=== PATIENT | male | born 1970 | race Caucasian/White ===

== ENCOUNTER 2020-05-25 16:06 | Emergency (ER) | payer OTHER, SELFPAY ==
[2020-05-25 16:07] VITALS: BP 120/86; PULSE 81; RESP 16; TEMP 36.9; O2SAT 98; BMI 33.0
[2020-05-25 16:38] VITALS: BP 120/86; PULSE 81; RESP 16; TEMP 36.9; O2SAT 98; BMI 32.9
--- NOTE | 2020-05-25 16:49 | HMH.EDUTC ---
[facility] [place] Impression: Abscess, Bronchitis Disposition: Home, Self-Care Condition on Discharge: Good Instructions: Boil, Acute Bronchitis Additional Instructions: follow up with surgery to have abcess evaluated call tomorrow for appointment antibiotics as ordered keep area clean and dry if symptoms worsen or does not improve return follow up with pcp this week call for culture results in 2 days/. Prescriptions: Sulfamethoxazole/Trimethoprim [Bactrim DS tablet] 1 each PO BID 10 Days #20 tab Transmission Status: Pending to [id number] cephALEXin [Keflex 500mg Cap] 500 mg PO BID 10 Days #20 cap Transmission Status: Pending to [id number] Referrals: Consuelo Blevins [Primary Care Provider] - Time of Disposition: 17:33 Medical Decision Making - Mike Inquiry Pt receiving controlled substance: No Vital Signs: 05/25/20 16:07 05/25/20 16:38 Temperature 98.5 F 98.5 F Temperature Source Oral Oral Pulse Rate [Radial] 81 81 Respiratory Rate 16 16 Blood Pressure [Right Arm] 120/86 120/86 Blood Pressure Mean [Right Arm] 97 97 Blood Pressure Source [Right Arm] Automatic Cuff Blood Pressure Position [Right Arm] Sitting Sitting 02 Sat by Pulse Oximetry 98 98 Oxygen Delivery Method Room Air Room Air Orders (Tests/Meds): ORDERS Category Date Time Status Wound Culture and Gram Stain Stat Micro 05/25/20 17:22 [place] [facility] [place] - General Chief complaint: [facility] Stated complaint: boil on L side of back Time Seen by Provider: 05/25/20 16:49 Mode of Arrival: Ambulatory Source of Information: Patient Limitations: No Limitations Description of Symptoms (Recalled from Triage Doc. by RN): PATIENT C/O BOIL ON LEFT SIDE OF BACK X 2 DAYS HEENT Symptoms (Recalled from RN notes): No Resp Symptoms (Recalled from RN notes): No Skin Symptoms (Recalled from RN notes): No MS Symptoms (Recalled from RN notes): Yes Functional Status (Recalled from RN notes): WNL - History of Present Illness Provider Complaint: 49 yr old male presents for boil on back for 2 days and green nasal congestion with cough. - Related Data Previous Rx's Medication Instructions Recorded Albuterol Sulfate [Albuterol HFA 1 - 2 puffs IH Q4-6H PRN #1 inh 02/09/20 Inhaler] Azithromycin [Z-Sumanth 250mg Tab*] 250 mg PO UD DOSE PK #6 tab 09/09/19 Benzonatate [Tessalon Perle 100mg 100 mg PO TID PRN #30 cap 09/09/19 Cap*] methylPREDNISolone [Medrol 4mg 4 mg PO DIRECTED #21 tab 09/09/19 tab] Sulfamethoxazole/Trimethoprim 1 each PO BID 10 Days #20 tab 05/25/20 [Bactrim DS tablet] cephALEXin [Keflex 500mg Cap] 500 mg PO BID 10 Days #20 cap 05/25/20 Allergies Allergy/AdvReac Type Severity Reaction Status Date / Time No Known Allergies Allergy Verified 05/01/19 03:15 - Worker's Comp Is this a Worker's Comp case?: No [facility] History - Hepatitis A Screen Drug use history?: No High risk sexual behaviors?: No History of sexually transmitted infection?: No Currently employed?: No Childcare worker?: No Do you have indoor plumbing?: Yes Do you have electricity?: Yes Attestation statement:: This patient has been screened for Hepatitis A risk factors. I have reviewed the patient's past medical history: Yes Medical History: Denies:: Cancer, Diabetes Mellitus Type 1, Diabetes Mellitus Type 2, MRSA Amputation: No - Social History Smoking Status: Current every day smoker Tobacco Type: cigarettes # Packs/Day (cigarettes): 1 Alcohol Intake: never Alcohol Intake Frequency:: a few times a month Occupational Status: other ROS Obtained: Yes Systems reviewed as appropriate & no additional complaints - Constitutional Constitutional: Reports system reviewed and no additional complaints, except as docu, Denies fever(s) - Eyes Eyes: Reports system reviewed and no additional complaints, except as docu, Denies eye pain - ENT Ears, Nose, Mouth, and Throat: Reports system reviewed an
[2020-05-25 17:35] VITALS: BP 120/86; PULSE 81; RESP 16; TEMP 36.9; O2SAT 98
== END 2020-05-25 17:37 | disposition home or self-care (01) ==
LOC: ER 16:14 → UTC 16:15
PROVIDERS: Emergency Provider Nurse Practitioner Family; PCP Family Medicine
DX: L02.212 Cutaneous abscess of back [any part, except buttock and flank] (principal); J20.9 Acute bronchitis, unspecified; F17.210 Nicotine dependence, cigarettes, uncomplicated
CPT/HCPCS: 10060; 87070; 87077; 87205; 99201

== ENCOUNTER 2021-04-17 16:13 | Observation (INO) | payer OTHER, SELFPAY ==
[2021-04-17] VITALS (11 sets, daily range): BP systolic 95–127; BP diastolic 50–84; PULSE 63–88; RESP 17–19; TEMP 36.8–36.9; O2SAT 92–96; BMI 27.8; BMI 32.6
--- NOTE | 2021-04-17 16:13 | ECG_ITS ---
APPROVED REPORT Exam: Resting ECG HR:88 bpm ECG Measurements Heart Rate 88 AXES LA 174 P 51 QRSd 104 QRS -88 QT 418 T 103 QTc 505 Conclusion Normal sinus rhythm Pulmonary disease pattern Incomplete right bundle branch block Left anterior fascicular block Left ventricular hypertrophy with repolarization abnormality Prolonged QT Abnormal ECG Electronically signed by : Nolberto Patel MD 04/18/2021 21:11:43
--- NOTE | 2021-04-17 16:24 | XR_ITS ---
PROCEDURE INFORMATION: Exam: XR Chest Exam date and time: 04/17/2021 4:24 PM Age: 50 years old Clinical indication: Pain; On breathing; Additional info: Cough TECHNIQUE: Imaging protocol: XR of the chest. Views: 1 view. COMPARISON: CR XR CHEST 2V 05/01/2019 2:48 AM FINDINGS: Airway: Patent Lungs: Low lung volumes causes crowding of the bronchovascular structures. Questionable ground-glass opacifications in the bilateral lung bases. Remainder of the lungs are clear. Pleural spaces: Unremarkable. No pleural effusion. No pneumothorax. Heart/Mediastinum: Cardiomediastinal silhouette is magnified due to technique. Bones/joints: No acute skeletal abnormality or aggressive osseous lesion. IMPRESSION: Question of developing bilateral basal airspace disease versus artifact from crowding of structures. Developing pneumonic process should be entertained in the appropriate clinical setting.
--- NOTE | 2021-04-17 16:34 | HMH.EDCP ---
ED Disposition Clinical Impression: Nonspecific chest pain, Acute kidney injury Disposition: Still a Patient Condition on Discharge: Fair - Critical Care Critical Care Time: No Attestation: On , the high probability of a clinically significant, sudden or life threatening deterioration of the following system(s) required my full and direct attention, intervention and personal management. The time I documented below is in addition to time spent performing reported procedures but includes the following listed in this critical care notation. Medical Decision Making - Medical Records Medical records reviewed: Yes: I reviewed the patient's medical records. - Mike Inquiry Pt receiving controlled substance: Yes Mike was queried for this patient: Yes Reference #:: [id number] Risks and benefits of using a controlled substance: were discussed with pt by me Vital Signs: 04/17/21 16:16 04/17/21 16:30 04/17/21 17:01 Temperature 98.4 F Temperature Source Oral Pulse Rate 82 87 Pulse Rate [Left Radial] 88 Respiratory Rate 18 17 18 Blood Pressure 116/70 103/52 L Blood Pressure [Right Arm] 127/84 Blood Pressure Mean 85 69 Blood Pressure Mean [Right Arm] 98 Blood Pressure Source [Right Arm] Automatic Cuff Blood Pressure Position [Right Arm] Sitting 02 Sat by Pulse Oximetry 96 96 95 Oxygen Delivery Method Room Air 04/17/21 17:30 04/17/21 18:00 04/17/21 18:30 Temperature Temperature Source Pulse Rate 84 82 75 Pulse Rate [Left Radial] Respiratory Rate 17 18 18 Blood Pressure 114/56 L 95/51 L 101/50 L Blood Pressure [Right Arm] Blood Pressure Mean 69 65 63 Blood Pressure Mean [Right Arm] Blood Pressure Source [Right Arm] Blood Pressure Position [Right Arm] 02 Sat by Pulse Oximetry 94 L 92 L 92 L Oxygen Delivery Method - Lab Data Lab Results 04/17/21 16:20: WBC 8.8, RBC 4.11 L, Hgb 14.0 L, Hct 39.9 L, MCV 97.1 H, MCH 34.0 H, MCHC 35.0, RDW 13.9, Plt Count 335, MPV 7.6, Neut % (Auto) 49.8, Lymph % (Auto) 40.4, [place] % (Auto) 5.4, Eos % (Auto) 3.2, Baso % (Auto) 1.3, Neut # (Auto) 4.4, Lymph # (Auto) 3.5, [place] # (Auto) 0.5, Eos # (Auto) 0.3, Baso # (Auto) 0.1 04/17/21 16:20: Sodium 138, Potassium 4.2, Chloride 103, Carbon Dioxide 23, Anion Gap 16.2 H, BUN 21 H, Creatinine 1.40 H, Estimated Creat Clear 79, Estimated GFR 53 L, Est GFR ( Amer) 64, Glucose 110 H, Calcium 9.4, Total Bilirubin 0.2, AST 40, ALT 24, Alkaline Phosphatase 85, Troponin I 0.03, Total Protein 7.7, Albumin 4.4, Globulin 3.3 H, Albumin/Globulin Ratio 1.3, Lipase 152 04/17/21 16:20: PT 10.4, INR 0.87 L, APTT 28.0 04/17/21 16:20: NT-Pro-B Natriuret Pep 1220 H Result diagrams: 04/17/21 16:20 04/17/21 16:20 Orders (Tests/Meds): ED MEDICATIONS Generic Name Dose Route Start Last Admin Trade Name Freq PRN Reason Stop Dose Admin Sodium Chloride 1,000 mls @ 999 mls/hr 04/17/21 18:45 04/17/21 19:06 Sod Chlor 0.9% 1000ml Bag IV 04/17/21 19:45 999 mls/hr .Q1H1M MEHDI Administration Discontinued Medications Generic Name Dose Route Start Last Admin Trade Name Freq PRN Reason Stop Dose Admin Aspirin 325 mg 04/17/21 16:24 04/17/21 17:00 Aspirin 325mg Tablet PO 04/17/21 16:25 325 mg ONCE ONE Administration Morphine Sulfate 4 mg 04/17/21 16:24 04/17/21 17:00 Morphine 4mg/Ml Syringe IV 04/17/21 16:25 4 mg ONCE ONE Administration Ondansetron HCl 4 mg 04/17/21 16:24 04/17/21 17:00 Ondansetron 4mg/2ml Vial IV 04/17/21 16:25 4 mg ONCE ONE Administration ORDERS Category Date Time Status Troponin I Q3H Lab 04/17/21 19:30 Ordered Troponin I Q3H Lab 04/17/21 22:30 Ordered - ECG Data Tracing #1 EKG showed a normal ventricular rate 80 bpm, MD interval of 174 ms, prolonged QTC of 505 ms. Patient has some nonspecific ST changes, left ventricular hypertrophy with repolarization. ECG initial impression date: 04/17/21 ECG initial impression time:
[2021-04-17 16:39] LABS: Basophils # 0.1 K/mm3 (0-0.2); Basophils % 1.3 % (0.1-2.0); Eosinophils # 0.3 K/mm3 (0.0-0.4); Eosinophils % 3.2 % (0.1-12.0); Hematocrit 39.9 % (42.0-52.0); Lymphocytes # 3.5 K/mm3 (0.7-4.5); Lymphocytes % 40.4 % (10-50); Mean Corpuscular Volume 97.1 fl (80-94); Mean Platelet Volume 7.6 fl (7.4-10.4); Monocytes # 0.5 K/mm3 (0.1-1.0); Monocytes % 5.4 % (1.7-9.3); Neutrophils # 4.4 K/mm3 (1.8-7.8); Neutrophils % 49.8 % (37.0-80.0); Platelet Count 335 K/mm3 (142-424); Red Blood Count 4.11 M/mm3 (4.60-6.20); Red Cell Distribution Width 13.9 % (11.5-17.5); White Blood Count 8.8 K/mm3 (4.8-10.8)
[2021-04-17 16:40] LABS: Chloride 103 mmol/L (98-107); Potassium 4.2 mmoL/L (3.5-5.1); Sodium 138 mmol/L (136-145)
[2021-04-17 16:42] LABS: Blood Urea Nitrogen 21 mg/dl (9-20); Creatinine Clearance Estimated 79 mL/min (50-200); Estimated Glomerular Filt Rate 53 ml/min (>60); GFR (African American) 64 ML/MIN (>60)
[2021-04-17 16:43] LABS: Alanine Aminotransferase 24 U/L (12-78); Albumin Level 4.4 g/dl (3.5-5.0); Albumin/Globulin Ratio 1.3 (1.1-1.8); Alkaline Phosphatase 85 U/L (38-126); Anion Gap 16.2 mEq/L (5-15); Aspartate Amino Transferase 40 U/L (17-59); Bilirubin,Total 0.2 mg/dl (0.2-1.3); Calcium 9.4 mg/dl (8.4-10.2); Carbon Dioxide 23 mmol/L (22.0-30.0); Globulin 3.3 g/dL (1.3-3.2); Glucose 110 mg/dl (74-100); Lipase 152 U/L (23-300); Total Protein,Serum 7.7 g/dl (6.3-8.2)
[2021-04-17 16:45] LABS: Prothrombin Time 10.4 seconds (10.1-12.5)
[2021-04-17 16:53] LABS: NT Pro Brain Natriuretic Pep. 1220 pg/mL (0-125)
[2021-04-17 16:56] LABS: Troponin I 0.03 ng/ml (0.00-0.034)
[2021-04-17 17:07] LABS: INR 0.87 (0.9-1.1)
[2021-04-17 20:40] LABS: Troponin I 0.04 ng/ml (0.00-0.034)
--- NOTE | 2021-04-17 21:08 | PC.NURSE ---
Dr. Pastor s/w Dr. Menon. He would like to keep pt and possible do heart cath in am.
--- NOTE | 2021-04-17 21:11 | PC.NURSE ---
Dr. Pastor s/w Dr. Sweet for admission. Notifed music supervisor and Charge nurse for bed assignment. room 213
[2021-04-17 21:24] LABS: Coronavirus 19, PCR Not Detected (NotDetected); Influenza A, PCR Not Detected (NotDetected); Influenza B, PCR Not Detected (NotDetected)
--- NOTE | 2021-04-17 21:26 | PC.NURSE ---
Dr. Sweet made aware that there is no heart monitor available for this patient on the floor
--- NOTE | 2021-04-17 22:51 | PC.NURSE ---
patient up to floor via wheelchair .
[2021-04-17 23:09] LABS: Troponin I 0.05 ng/ml (0.00-0.034)
[2021-04-18] VITALS (7 sets, daily range): BP systolic 111–142; BP diastolic 58–90; PULSE 58–68; RESP 14–20; TEMP 36.5–36.6; O2SAT 96–100
--- NOTE | 2021-04-18 | IR_ITS ---
APPROVED REPORT Patient Location: Inpatient Human Resources Training Manager: MIGEL Crump RT (R) PROCEDURES Left heart catheterization Left ventriculogram Selective coronary angiogram Catheter placed in the abdominal aorta Nonselective bilateral renal angiogram INDICATION Acute coronary syndrome elevated troponin with highly abnormal EKG, Hypertension with elevated creatinine 1.4 suspect renovascular hypertension/renal artery stenosis Informed consent was obtained prior to the procedure. COMPLICATIONS NONE Estimated Blood Loss: LESS THAN 10 ML TECHNIQUE One percent lidocaine used to anesthetize the right anterior aspect of the wrist. The right radial artery was accessed via the Seldinger technique. A 6 Tajik sheath was placed in the right radial artery. 2.5 mg of verapamil, 800 mcg of nitroglycerin, 1mg Lidocaine and 5000 U Heparin were given through the arterial sheath. The Poppa catheter was also used to perform left heart catheterization, left ventriculogram and selective coronary angiogram. The catheter was then pulled back and placed at the renal artery level. Due to the short nature of the catheter selective intubation cannot be performed of the renal arteries. Nonselective renal angiography did demonstrate wide patency of the renal arteries. At the end of the procedure the apparatus was removed the sheath was removed and hemostasis achieved using TR banding patient was transferred to the postop already in stable condition ANGIOGRAPHIC RESULTS The left main artery Normal The left anterior descending artery Normal The circumflex artery Normal The right coronary artery Dominant normal The RAI ventriculogram reveals Slightly hyperdynamic 75% The left ventricular end-diastolic pressure 30 to 35 mmHg Right renal artery singular normal Left renal artery singular normal IMPRESSION Normal coronary arteries Hyperdynamic ventricle consistent with hypertensive heart disease Elevated LVEDP consistent with hypertensive heart disease Normal renal arteries PLAN 1. Treatment of hypertensive heart disease 2. Patient needs an echocardiogram to evaluate for other structural heart disease based on the highly abnormal EKG 3. ROSALINDA inhibitor's and beta-blockers for hypertensive heart disease 4. Risk factor modification 5. Avoidance of tobacco products Electronically signed by : Israel Menon MD 04/18/2021 11:50:52
--- NOTE | 2021-04-18 04:45 | PC.NURSE ---
pt is AxOx4, on room air, has had no complaints of chest pain since arriving to floor
--- NOTE | 2021-04-18 10:29 | PC.NURSE ---
1012 dr. sanchez notified staff of plans to cath pt at 1130 today 1014 dairy laboratory technician team paged at this time 1015 return call from nghia flores rn 1016 return call from jonathan rondon and reilly melgarrn
--- NOTE | 2021-04-18 10:49 | HMH.HP ---
*Admission Date: 04/17/21 *Chief complaint: chest pain *History of present illness: this patient presented with chest pain to the ed - his is a 50-year-old male presented to the emergency department with some chest discomfort. Patient states that he has had the symptoms for the last month or so. He states that they come and go. Intermittent in nature. Patient states that they are not exacerbated by any certain activity. It is a dull pain. Located more in the right side of his chest. Non-radiating. Not associate with any palpitations or shortness of breath. No cough hemoptysis. Denies any headache or change in vision. No focal weakness. No abdominal pain or vomiting. No fevers or chills. pt reports increasing sc over the last month - pt has sig risk factors - tob and htn and positive fh - pt was admitted for serial enz and monitor and discuss with [facility] History I have reviewed the patient's past medical history: Yes Medical History: Reports:: Hyperlipidemia, Hypertension Denies:: Cancer, Diabetes Mellitus Type 1, Diabetes Mellitus Type 2, MRSA *Have you ever received a pneumonia vaccine?: No *Have you received a flu vaccine this season?: No Amputation: No Fractures: No - *Social History Smoking Status: Current every day smoker Tobacco Type: cigarettes # Packs/Day (cigarettes): 1 Alcohol Intake: current Alcohol Intake Frequency:: holidays/special occasions only *Occupational Status:: unemployed *Travel in the last 8 weeks: None Family Hx:: Cancer, Diabetes Review of Systems - Review of Systems Review of systems:: pertinent systems reviewed and negative unless documented below - Constitutional Denies fever(s) - Eyes Denies change in vision, Denies floaters - ENT Denies dizziness, Denies sore throat - *Cardiovascular Reports chest pain at rest, Reports chest pain with activity - *Respiratory Denies cough - *Gastrointestinal Denies abdominal pain - *Genitourinary Denies blood in urine - *Musculoskeletal Denies joint pain, Denies joint swelling - Integumentary/Breasts Denies rash - *Neurologic Denies headache(s), Denies numbness - Psychiatric Denies anxiety Meds Home Medications Medication Instructions Recorded Confirmed Type Ergocalciferol (Vitamin D2) 1.25 mg PO WEEKLY 04/17/21 04/17/21 History [Vitamin D2] Gabapentin 300 mg PO QID 04/17/21 04/17/21 History Levothyroxine Sodium [Euthyrox] 175 mcg PO DAILY 04/17/21 04/17/21 History Metoprolol Succinate [Metoprolol 25 mg PO DAILY 04/17/21 04/17/21 History Succinate 25mg Tablet*] Pravastatin Sodium [Pravachol 40mg 40 mg PO HS 04/17/21 04/17/21 History Tablet] Allergies Allergy/AdvReac Type Severity Reaction Status Date / Time No Known Allergies Allergy Verified 04/17/21 23:20 Exam Vital signs and Labs for Last 24 Hours: Temp Pulse Resp BP Pulse Ox 97.7 F 58 L 16 117/68 97 04/18/21 08:00 04/18/21 08:00 04/18/21 08:00 04/18/21 08:00 04/18/21 08:00 Laboratory Results - last 24 hr 04/17/21 16:20: WBC 8.8, RBC 4.11 L, Hgb 14.0 L, Hct 39.9 L, MCV 97.1 H, MCH 34.0 H, MCHC 35.0, RDW 13.9, Plt Count 335, MPV 7.6, Neut % (Auto) 49.8, Lymph % (Auto) 40.4, [place] % (Auto) 5.4, Eos % (Auto) 3.2, Baso % (Auto) 1.3, Neut # (Auto) 4.4, Lymph # (Auto) 3.5, [place] # (Auto) 0.5, Eos # (Auto) 0.3, Baso # (Auto) 0.1 04/17/21 16:20: Sodium 138, Potassium 4.2, Chloride 103, Carbon Dioxide 23, Anion Gap 16.2 H, BUN 21 H, Creatinine 1.40 H, Estimated Creat Clear 79, Estimated GFR 53 L, Est GFR ( Amer) 64, Glucose 110 H, Calcium 9.4, Total Bilirubin 0.2, AST 40, ALT 24, Alkaline Phosphatase 85, Troponin I 0.03, Total Protein 7.7, Albumin 4.4, Globulin 3.3 H, Albumin/Globulin Ratio 1.3, Lipase 152 04/17/21 16:20: PT 10.4, INR 0.87 L, APTT 28.0 04/17/21 16:20: NT-Pro-B Natriuret Pep 1220 H 04/17/21 19:56: Troponin I 0.04 H 04/17/21 21:19: SARS-CoV-2 (PCR) Not detected, Influenza A Untype (PCR) Not detected, Influenz
[2021-04-18 11:10] LABS: Cholesterol 175 mg/dl (140-200); HDL Cholesterol 29 mg/dl (40-60); Triglycerides 152 mg/dl (30-150); VLDL Cholesterol 30 mg/dL (0-40)
[2021-04-18 11:21] LABS: Direct LDL Cholesterol 110.95 mg/dL (100-129)
--- NOTE | 2021-04-18 13:44 | P.CONPHA_ITS ---
[facility] Pharmacy VTE Monitoring - Patient Demographics Admission date: 04/17/21 Report Date: 04/18/21 Time: 13:44 Allergies/Adverse Reactions: Patient Allergies No Known Allergies Allergy (Verified 04/17/21 23:20) Height: 1.8 m Weight: 105.857 kg Patient Problems: Current Active Problems Nonspecific chest pain (Acute) Acute kidney injury (Acute) Unstable angina (Acute) Tobacco use (Acute) Elevated troponin (Acute) Elevated brain natriuretic peptide (BNP) level (Acute) Renal insufficiency (Acute) HTN (hypertension) (Acute) Obesity (BMI 30-39.9) (Acute) Hypothyroidism (Acute) - VTE Risk Labs: VTE Related Lab Results Hgb 14.0 g/dL (14.1-18.0) L 04/17/21 16:20 Hct 39.9 % (42.0-52.0) L 04/17/21 16:20 Plt Count 335 K/mm3 (142-424) 04/17/21 16:20 PT 10.4 seconds (10.1-12.5) 04/17/21 16:20 INR 0.87 (0.9-1.1) L 04/17/21 16:20 APTT 28.0 seconds (22.8-30.6) 04/17/21 16:20 BUN 21 mg/dl (9-20) H 04/17/21 16:20 Creatinine 1.40 mg/dl (0.66-1.25) H 04/17/21 16:20 Estimated Creat Clear 79 mL/min (50-200) 04/17/21 16:20 Was VTE Risk Assessment Performed: Yes VTE Score: 1 VTE Risk Level: Very Low Risk - Prophylaxis VTE Prophylaxis Ordered?: Yes Types of VTE Prophylaxis: TEDS Knee High Location of Applied Device: Bilateral Lower Extremeties
--- NOTE | 2021-04-18 13:46 | HMH.PHAINT ---
MEDICATION RECONCILIATION COMPLETED ON PATIENT USING EXTERNAL FILL HISTORY FROM PHARMACY. -CRYS ONOFRE, SHARLAD
--- NOTE | 2021-04-18 16:09 | HMH.DCSUM ---
General - General Admission date:: 04/17/21 Discharge date: 04/18/21 HPI HPI: this patient presented with chest pain to the ed - his is a 50-year-old male presented to the emergency department with some chest discomfort. Patient states that he has had the symptoms for the last month or so. He states that they come and go. Intermittent in nature. Patient states that they are not exacerbated by any certain activity. It is a dull pain. Located more in the right side of his chest. Non-radiating. Not associate with any palpitations or shortness of breath. No cough hemoptysis. Denies any headache or change in vision. No focal weakness. No abdominal pain or vomiting. No fevers or chills. pt reports increasing sc over the last month - pt has sig risk factors - tob and htn and positive fh - pt was admitted for serial enz and monitor and discuss with card- Hospital Course Hospital Course: Laboratory Tests 04/17/21 04/17/21 04/17/21 16:20 16:20 16:20 WBC 8.8 RBC 4.11 L Hgb 14.0 L Hct 39.9 L MCV 97.1 H MCH 34.0 H MCHC 35.0 RDW 13.9 Plt Count 335 MPV 7.6 Neut % (Auto) 49.8 Lymph % (Auto) 40.4 [place] % (Auto) 5.4 Eos % (Auto) 3.2 Baso % (Auto) 1.3 Neut # (Auto) 4.4 Lymph # (Auto) 3.5 [place] # (Auto) 0.5 Eos # (Auto) 0.3 Baso # (Auto) 0.1 PT 10.4 INR 0.87 L APTT 28.0 Sodium 138 Potassium 4.2 Chloride 103 Carbon Dioxide 23 Anion Gap 16.2 H BUN 21 H Creatinine 1.40 H Estimated Creat Clear 79 Estimated GFR 53 L Est GFR ( Amer) 64 Glucose 110 H Calcium 9.4 Total Bilirubin 0.2 AST 40 ALT 24 Alkaline Phosphatase 85 Troponin I 0.03 NT-Pro-B Natriuret Pep Total Protein 7.7 Albumin 4.4 Globulin 3.3 H Albumin/Globulin Ratio 1.3 Triglycerides Cholesterol LDL Cholesterol Direct VLDL Cholesterol HDL Cholesterol Cholesterol/HDL Ratio Lipase 152 SARS-CoV-2 (PCR) Influenza A Untype (PCR) Influenza Type B (PCR) 04/17/21 04/17/21 04/17/21 16:20 19:56 21:19 WBC RBC Hgb Hct MCV MCH MCHC RDW Plt Count MPV Neut % (Auto) Lymph % (Auto) [place] % (Auto) Eos % (Auto) Baso % (Auto) Neut # (Auto) Lymph # (Auto) [place] # (Auto) Eos # (Auto) Baso # (Auto) PT INR APTT Sodium Potassium Chloride Carbon Dioxide Anion Gap BUN Creatinine Estimated Creat Clear Estimated GFR Est GFR ( Amer) Glucose Calcium Total Bilirubin AST ALT Alkaline Phosphatase Troponin I 0.04 H NT-Pro-B Natriuret Pep 1220 H Total Protein Albumin Globulin Albumin/Globulin Ratio Triglycerides Cholesterol LDL Cholesterol Direct VLDL Cholesterol HDL Cholesterol Cholesterol/HDL Ratio Lipase SARS-CoV-2 (PCR) Not detected Influenza A Untype (PCR) Not detected Influenza Type B (PCR) Not detected 04/17/21 04/18/21 22:43 06:49 WBC RBC Hgb Hct MCV MCH MCHC RDW Plt Count MPV Neut % (Auto) Lymph % (Auto) [place] % (Auto) Eos % (Auto) Baso % (Auto) Neut # (Auto) Lymph # (Auto) [place] # (Auto) Eos # (Auto) Baso # (Auto) PT INR APTT Sodium Potassium Chloride Carbon Dioxide Anion Gap BUN Creatinine Estimated Creat Clear Estimated GFR Est GFR ( Amer) Glucose Calcium Total Bilirubin AST ALT Alkaline Phosphatase Troponin I 0.05 H NT-Pro-B Natriuret Pep Total Protein Albumin Globulin Albumin/Globulin Ratio Triglycerides 152 H Cholesterol 175 LDL Cholesterol Direct 110.95 VLDL Cholesterol 30 HDL Cholesterol 29 L Cholesterol/HDL Ratio 6.0 H Lipase SARS-CoV-2 (PCR) Influenza A Untype (PCR) Influenza Type B (PCR) Ordering Physician: Israel Menon MD
--- NOTE | 2021-04-20 09:48 | HMH.CNCARD ---
History of Present Illness Consult date: 04/18/21 Requesting physician: Guy Pastor Consult reason: chest pain Chief complaint: chest pain History of present illness: This is a 50-year-old gentleman who presented to the emergency department with complaints of chest pain. The patient states that his symptoms started approximately a month ago. His pain is intermittent. He states that this is a dull pressure sensation in the right side of his chest. It does not radiate. It is not associated with shortness of breath, nausea or diaphoresis. He states that this occurs with rest or activity and is not really exacerbated by any certain activity. He states that it lasts for several minutes before resolving. The patient is a current tobacco user and does have a family history of ischemic heart disease. [facility] History I have reviewed the patient's past medical history: Yes Medical History: Reports:: Hyperlipidemia, Hypertension Denies:: Cancer, Diabetes Mellitus Type 1, Diabetes Mellitus Type 2, MRSA *Have you ever received a pneumonia vaccine?: No *Have you received a flu vaccine this season?: No Amputation: No Fractures: No - *Social History Smoking Status: Current every day smoker Tobacco Type: cigarettes # Packs/Day (cigarettes): 1 Alcohol Intake: current Alcohol Intake Frequency:: holidays/special occasions only *Occupational Status:: unemployed *Travel in the last 8 weeks: None Family Hx:: Cancer, Coronary Artery Disease, Diabetes Meds Home Medications Medication Instructions Recorded Confirmed Type Ergocalciferol (Vitamin D2) 1.25 mg PO WEEKLY 04/17/21 04/17/21 History [Vitamin D2] Gabapentin 300 mg PO QID 04/17/21 04/17/21 History Levothyroxine Sodium [Euthyrox] 175 mcg PO DAILY 04/17/21 04/17/21 History Metoprolol Succinate [Metoprolol 25 mg PO DAILY 04/17/21 04/17/21 History Succinate 25mg Tablet*] Pravastatin Sodium [Pravachol 40mg 40 mg PO HS 04/17/21 04/17/21 History Tablet] lisinopriL [Lisinopril] 5 mg PO DAILY 30 Days #30 tab 04/18/21 Rx Allergies Allergy/AdvReac Type Severity Reaction Status Date / Time No Known Allergies Allergy Verified 04/17/21 23:20 Exam Vital signs and Labs for Last 24 Hours: Temp Pulse Resp BP Pulse Ox 98 F 64 20 127/80 97 04/18/21 12:05 04/18/21 12:10 04/18/21 12:10 04/18/21 12:10 04/18/21 12:10 I & O for Last 24 hours: Intake & Output 04/17/21 04/18/21 04/19/21 04/20/21 23:59 23:59 23:59 23:59 Intake Total 1000 / 1000 720 / 720 Balance 1000 / 1000 720 / 720 Weight 233 lb 6 oz Narrative: EKG is sinus rhythm with a rate of 88, incomplete right bundle branch block, chronic pulmonary pattern, LVH and left anterior hemiblock. - Constitutional no acute distress, obese - *Routine HEENT Exam Head: Present: normocephalic, atraumatic Eye: Present: EOMI, PERRL ENT: Present: mucous membranes moist - *Routine Neck Exam Present: supple, full ROM, normal carotid upstroke. Absent: JVD, carotid bruit, lymphadenopathy - *Routine Respiratory Exam Present: CTA bilaterally - *Routine Cardiovascular Exam Present: RRR, Normal S1, Normal S2. Absent: murmur - *Routine Abdominal Exam Present: soft, normoactive bowel sounds. Absent: tenderness, distended - *Routine Extremities Exam Present: full ROM, pulses intact, normal capillary refill. Absent: cyanosis, clubbing, edema - *Routine Skin Exam Present: intact, warm. Absent: erythema, rash - *Routine Neurological Exam Present: alert, oriented X3, CN II-XII intact. Absent: sensory deficit, motor deficit - Routine Psychiatric Exam Present: normal affect, normal thought process Review of Systems - Review of Systems Review of systems:: pertinent systems reviewed and negative unless documented below - *Cardiovascular Reports chest pain, Reports chest pain at rest, Reports chest pain with activity, Denies shortness of breath, Denies radiating jaw, neck or arm pain -
== END 2021-04-18 18:05 | disposition home or self-care (01) ==
LOC: ER 19:55 → 2ND 21:32
PROVIDERS: Emergency Medicine; Internal Medicine; Admitting Provider Family Medicine; Emergency Provider Emergency Medicine; PCP Family Medicine; Visit Provider Family Medicine
DX: R07.9 Chest pain, unspecified (principal); Z20.822 Contact with and (suspected) exposure to COVID-19; I11.9 Hypertensive heart disease without heart failure; F17.210 Nicotine dependence, cigarettes, uncomplicated; E03.9 Hypothyroidism, unspecified; I25.110 Atherosclerotic heart disease of native coronary artery with unstable angina pectoris; I70.1 Atherosclerosis of renal artery
CPT/HCPCS: 36252; 36415; 71045; 80053; 80061; 83690; 83880; 84484; 85025; 85610; 85730; 93005; 93458; 96365; 96375; 99152; 99284; C1725; C1760; C1769; C9803; G0378; J1644; J2405; Q9967; U0003; U0005

== ENCOUNTER → 2021-06-03 14:18 | Outpatient (CLI) | payer OTHER, SELFPAY ==
--- NOTE | 2021-06-03 14:19 | CA_ITS ---
APPROVED REPORT EXAM: Comprehensive 2D, Doppler, and color-flow Echocardiogram Retort Unloader: Mari Parsons, ANITA, RVS Ht: 5 ft 10 in Wt: 259lbs BSA: 2.33 BP: 131/83 mmHg Indications: HTN, CP, SOA, ABN EKG, Smoker, murmur 2D Dimensions IVSd 2.19 cm M: 0.6-1.2 LVEF (Visual) 63.40 % PWd 1.59 cm M: 0.6 - 1.2 LA Volume 47.50 mL LVDd 3.85 cm M: 4.2 - 5.9 LA Volume Index 20.38 mL/m2 (M/F) 16-34 LVDs 2.55 cm M: 2.5 - 4.0 Left Atrium 3.36 cm M: 3.0 - 4.0 LVOT 2.05 cm (M/F) 1.5-2.5 M-Mode Dimensions RVDd 3.23 cm (0.9-2.6) LA Diam 3.58 cm (1.9-4.0) LVDd 3.80 cm (3.5-5.7) Ao Diam 3.35 cm (2.0-3.7) LVDs 2.07 cm (3.5-5.7) IVSd 1.67 cm (0.6-1.1) PWd 1.29 cm (0.6-1.1) EF (Teich) 80.70% EPSs 0.53 cm FS 48.90% EDV (Teich) 72.10 mL ESV (Teich) 13.90 mL LV Diastology E Decel Time 200.00 (160-240 msec) E/A Ratio 0.9 MED E' 5.70 (< 7 cm/sec) MED A' 7.20 cm/s E'/MED E' Ratio 12.30 (>14) LAT E' 5.20 (<10 cm/sec) LAT A' 9.70 cm/s E/LAT E' Ratio 13.48 (>14) Aortic Valve LVOT Max 103.00 (70-110 cm/s) LVOT VTI 18.16 cm AoV Peak Winston. 110.00 (50-130 cm/s) AO Peak GR. 4.80 mmHg AO Mean GR. 2.40 (<5 mmHg) AO VTI 18.79 (18-25 cm) AAKASH (VTI) 3.19 (2.5-4.5 cm2) Mitral Valve MV E Max Winston. 70.00 (40-130 cm/s) MV A Velocity 81.00 (40-130 cm/s) E/A Ratio 0.86 MV Decel. Time 200.00 (160-240 ms) MV PHT 59.00 ms Pulmonary Valve PV Peak Velocity 90.00 (50-150 cm/s) Tricuspid Valve TR P. Velocity 147.00 cm/s RAP Estimate 10.00 mmHg RVSP 18.60 mmHg Left Ventricle Left atrium is mildly enlarged, left ventricle normal size, moderate concentric left ventricular hypertrophy, visually estimated ejection fraction 55% with no regional wall motion abnormality, grade 1 diastolic dysfunction seen without tissue Doppler evidence of raise left atrial pressure. Right Ventricle Right atrium and right ventricle are normal size and contractility. Aortic Valve Aortic valve is grossly normal, there is no aortic stenosis or aortic insufficiency. Mitral Valve Mitral valve grossly normal, there is trace mitral regurgitation. Tricuspid Valve Tricuspid grossly normal, there is trace tricuspid regurgitation, tricuspid regurgitation jet velocity is inadequate for calculation of the right ventricular systolic pressure. Pulmonic Valve Pulmonic valve is poorly visualized. Great Vessels Aortic root is normal size. Inferior vena cava is not well visualized. Pericardium No significant pericardial effusion noted. Conclusion 1. Mildly enlarged left atrium, normal left ventricular size, moderate concentric left ventricular hypertrophy, visually estimated ejection fraction 55% with no regional wall motion abnormality, grade 1 diastolic dysfunction seen without tissue Doppler evidence of raise left atrial pressure. 2. Trace mitral and tricuspid regurgitation. 3. No significant pericardial effusion noted. 4. Inferior vena cava is not well visualized. Electronically signed by : Conrad Duke MD 06/04/2021 16:30:19
== END ==
PROVIDERS: PCP Family Medicine; Visit Provider Urology
DX: R94.31 Abnormal electrocardiogram [ECG] [EKG] (principal); I10 Essential (primary) hypertension; R06.81 Apnea, not elsewhere classified; E66.9 Obesity, unspecified; F17.200 Nicotine dependence, unspecified, uncomplicated; R06.83 Snoring; R40.0 Somnolence; Z72.0 Tobacco use; Z68.37 Body mass index [BMI] 37.0-37.9, adult
CPT/HCPCS: 93306

== ENCOUNTER → 2021-07-13 12:52 | Outpatient (CLI) | payer OTHER, SELFPAY | PROVIDERS: PCP Family Medicine; Visit Provider Nurse Practitioner Family | DX: G47.33 Obstructive sleep apnea (adult) (pediatric) (principal); I10 Essential (primary) hypertension; G47.9 Sleep disorder, unspecified; R40.0 Somnolence; R06.83 Snoring; E66.9 Obesity, unspecified; Z68.30 Body mass index [BMI] 30.0-30.9, adult; R94.31 Abnormal electrocardiogram [ECG] [EKG] | CPT/HCPCS: 95806 ==